=== PATIENT | male | born 1945 | race Two or more races ===

== ENCOUNTER 2017-05-13 21:02 | Emergency (ER) | payer BC, MEDICARE, OTHER ==
[~2017-05-13] VITALS: Ht 167.6 cm; Wt 71.7 kg
[2017-05-13 21:02] VITALS: BP_SYST 156
--- NOTE | 2017-05-13 21:07 | NUR ---
Patient to ER bed 6 to gown for evaluation. Side rails up. Report given to RANGEL MOTT.
--- NOTE | 2017-05-13 21:10 | NUR ---
ED Kwaw at bedside for medical evaluation.
--- NOTE | 2017-05-13 21:15 | NUR ---
Patient to ER via triage with c/o CP off and on x 1 day. Patient also reports severe vertigo as well. Patient is awake, alert and oriented in no acute distress, vital signs stable, respirations even and unlabored, skins warm and dry to touch. classroom monitor shows sinus rhythm without ectopy. Patient has been seen and evaluated by Dr Alexandre. Will continue to observe and assess.
--- NOTE | 2017-05-13 21:38 | NUR ---
Patient transported off unit for ultrasound via wheelchair.
[2017-05-13 21:41] LABS: BASOPHILS # (AUTO) 0.1 K/uL (0.0-0.2); BASOPHILS % (AUTO) 1.4 % (0.0-2.0); EOSINOPHILS # (AUTO) 0.2 K/uL (0.0-0.4); EOSINOPHILS % (AUTO) 3.5 % (0.0-4.0); HEMATOCRIT 47.3 % (36-54); HEMOGLOBIN 15.7 g/dL (14.0-18.0); LYMPHOCYTES # (AUTO) 1.4 K/uL (1.0-5.5); LYMPHOCYTES % (AUTO) 24.4 % (20.5-51.5); MEAN CORPUSCULAR HEMOGLOBIN 31 pg (27-31); MEAN CORPUSCULAR HGB CONC 33 % (32-36); MEAN CORPUSCULAR VOLUME 93 fL (79.0-98.0); MONOCYTES # (AUTO) 0.5 K/uL (0.0-1.0); MONOCYTES % (AUTO) 9.2 % (1.7-9.3); NEUTROPHILS # (AUTO) 3.5 K/uL (1.8-7.7); NEUTROPHILS % (AUTO) 61.5 % (40.0-70.0); PLATELET COUNT (AUTO) 244 K/uL (130-430); RED BLOOD CELL COUNT(AUTO) 5.08 MIL/uL (4.2-6.2); RED CELL DISTRIBUTION WIDTH 13.5 % (9.0-15.0); WHITE BLOOD COUNT (AUTO) 5.7 K/uL (4.8-10.8)
[2017-05-13 21:52] LABS: ANION GAP 7 (5-15); CALCIUM 8.9 mg/dL (8.4-11.0); CHLORIDE 104 mmol/L (98-107); CREATININE 0.98 mg/dL (0.55-1.30); GLUCOSE 127 mg/dL (70-99); POTASSIUM 4.1 mmol/L (3.5-5.1); SODIUM SERUM 139 mmol/L (136-145); UREA NITROGEN, BLOOD 14 mg/dL (8-21)
[2017-05-13 21:59] LABS: GFR AFRICAN AMERICAN 98 mL/min (>90)
[2017-05-13 22:00] LABS: ALANINE AMINOTRANSFERASE 26 U/L (12-78); ALBUMIN 3.7 g/dL (3.4-4.8); ASPARTATE AMINOTRANSFERASE 18 U/L (10-37); TOTAL BILIRUBIN 0.7 mg/dL (0.0-1.0)
--- NOTE | 2017-05-13 22:10 | NUR ---
Patient returned to unit from US via wheelchair.
[2017-05-13 22:36] LABS: CHOLESTEROL 167 mg/dL (<200); HDL CHOLESTEROL 50 mg/dL (>45); LDL CHOLESTEROL 106 mg/dL (<100); TRIGLYCERIDES 48 mg/dL (30-150)
[2017-05-13 22:54] LABS: BILIRUBIN,URINE NEGATIVE (NEGATIVE); BLOOD, URINE NEGATIVE (NEGATIVE); CLARITY/URINE CLEAR (CLEAR); COLOR,URINE YELLOW (YELLOW); GLUCOSE,URINE NEGATIVE (NEGATIVE); KETONES,URINE NEGATIVE (NEGATIVE); LEUKOCYTE ESTERASE ,URINE NEGATIVE (NEGATIVE); NITRITE, URINE NEGATIVE (NEGATIVE); PROTEIN URINE NEGATIVE (NEGATIVE); UROBILINOGEN,URINE 0.2 (0.2-1.0)
[2017-05-13 22:55] VITALS: BP_SYST 150
--- NOTE | 2017-05-13 22:55 | NUR ---
Patient given written and verbal discharge instructions and verbalizes understanding. ER MD discussed with patient the results and treatment provided. Patient in stable condition. ID arm band removed. No RX given. Patient educated on pain management and to follow up with PMD. Pain Scale 3. Opportunity for questions provided and answered. Patient left ER ambulating with slow, steady gait in no acute distress. Patient given aftercare instructions by Dr Alexandre, questions answered by Dr Alexandre.
== END 2017-05-13 22:55 | disposition home or self-care (01) ==
LOC: SED 21:02
DX: H81.20 Vestibular neuronitis, unspecified ear (principal); Z86.73 Personal history of transient ischemic attack (TIA), and cerebral infarction without residual deficits; Z95.818 Presence of other cardiac implants and grafts
CPT/HCPCS: 36415; 71045; 80053; 80061; 81003; 83880; 84484; 85025; 93005; 93880; 99285